=== PATIENT | female | born 1980 | race Caucasian/White ===

== ENCOUNTER 2023-03-10 20:38 | Emergency (ER) | payer BC, SELFPAY ==
[2023-03-10 20:39] VITALS: BP 145/104; PULSE 95; RESP 15; TEMP 36.7; O2SAT 99
--- NOTE | 2023-03-10 21:20 | RAD_ITS ---
STUDY: XR Knee 3 Views 03/10/2023 9:32 PM REASON FOR EXAM: Female, 43 years old. INJURY TECHNIQUE: XR Knee 3 Views LEFT COMPARISON: None FINDINGS: Normal visualized distal femur. Normal visualized proximal tibia and fibula. Normal proximal tibiofibular articulation. Normal medial femorotibial compartment. Normal lateral femorotibial compartment. There is mild lateral patellar tilt of the patellofemoral articulation. The soft tissue structures are unremarkable. RAD/Knee 4 or More Views IMPRESSION: There is mild lateral patellar tilt of the patellofemoral articulation. Electronically Signed: Tan Fam MD at 21:35 EDT ,
--- NOTE | 2023-03-10 23:48 | EDS_ITS ---
HPI History of Present Illness Chief Complaint: Lower Extremity Injury Narrative Narrative: 43-year-old female with/left posterior knee pain. She states she was at an arcade playing and she jumped up and down and felt a pop. She was able to ambulate with the assistance of her daughter. She has an antalgic gait. Denies any direct trauma to the leg. No numbness or tingling. PFSH PFSH Allergy/AdvReac Type Severity Reaction Status Date / Time No Known Allergies Allergy Verified 03/10/23 20:43 Social History Smoking Status: Never smoker ROS ROS ED Constitutional Constitutional ED: Denies chills, fever(s) or sweats Eyes Eyes: Denies blurry vision or change in vision ENT ENT ED: Denies ear pain or sore throat Cardiovascular Cardiovascular: Denies chest pain, palpitations or racing heartbeat Respiratory/Chest Respiratory/Chest: Denies cough, dyspnea or sputum Gastrointestinal Gastrointestinal: Denies abdominal pain, constipation, diarrhea, nausea or vomiting Genitourinary Genitourinary ED: Denies dysuria, hematuria or urinary frequency Musculoskeletal Musculoskeletal: Reports other Details: Left calf pain/posterior knee pain ; Denies myalgias or neck pain Integumentary Denies abscess, Abrasions or rash Neurologic Neurologic: Denies headache(s), paresthesias or weakness Psychiatric Psychiatric: Denies anxiety, depression, suicidal ideation or suicidal thoughts Endocrine Endocrinology: Denies polydipsia or polyuria EXAM Physical Exam Const Vital Signs: 03/10/23 20:39 Temperature 98.0 F Temperature Source Temporal Pulse Rate 95 Respiratory Rate 15 Blood Pressure 145/104 H Blood Pressure Mean 117 Pulse Ox 99 Oxygen Delivery Method Room Air Positive well nourished and well developed General Appearance ED: well developed HEENT normocephalic Resp normal respiratory effort Cardio regular rate and regular rhythm Extremity Extremity Narrative: Tenderness palpation of the left popliteal fossa. There is also tenderness in the proximal calf in the midline. No patellar tenderness. No knee effusion. No ligamentous laxity. No tenderness on the medial or lateral joint line. Neuro oriented x3 and CN's II-XII intact bilaterally Sensorium / Orientation: alert Motor Exam: strength 5/5 throughout Psych mental status grossly normal Skin no wounds MDM MDM MDM Narrative Medical decision making narrative: Patient presenting with left posterior knee pain. She has tenderness behind the left knee. There is no anterior palp pain to palpation on the knee. There is no edema. No bruising. X-rays of left knee on my interpretation show no acute fracture or subluxation. Patient given 600 mg of ibuprofen. She request crutches. I will also place an Dao wrap around her left knee. She was ambulated. Impression: 1. Left calf strain 2. Left knee strain Radiography Diagnostic Testing: Clinical Impression(s) from Imaging Studies Knee X-Ray 03/10/23 21:20 IMPRESSION: There is mild lateral patellar tilt of the patellofemoral articulation. Electronically Signed: Tan Fam MD at 21:35 EDT Reading Location ID and State: [facility] / [place] , Service support , Discharge Plan Triage Chief Complaint: Lower Extremity Injury ED Provider: Luis Martínez Dx/Rx/DC Orders Primary Care Provider: Care Physician,No Primary Referrals: Care Physician,No Primary [Primary Care Provider] -
[2023-03-11] MEDS: Ibuprofen 600 MG Tablet PO (00:02)
== END 2023-03-11 00:11 | disposition home or self-care (01) ==
PROVIDERS: Emergency Provider Student in an Organized Health Care Education/Training Program; Visit Provider Student in an Organized Health Care Education/Training Program
DX: S86.812A Strain of other muscle(s) and tendon(s) at lower leg level, left leg, initial encounter (principal); X58.XXXA Exposure to other specified factors, initial encounter; Y93.89 Activity, other specified; Y92.89 Other specified places as the place of occurrence of the external cause
CPT/HCPCS: 73564; 99284

== ENCOUNTER 2023-07-16 10:22 | Emergency (ER) | payer BC, SELFPAY ==
[2023-07-16 10:23] VITALS: BP 138/98; PULSE 104; RESP 18; TEMP 36.4; O2SAT 100; BMI 37.9
--- NOTE | 2023-07-16 10:44 | RAD_ITS ---
HISTORY: pain. TECHNIQUE: XR Spine Lumbar 2 or 3 Views. COMPARISON: None. FINDINGS: VERTEBRAE: Vertebral body heights preserved. Posterior elements appear intact. ALIGNMENT: No significant anterior or posterior subluxation. Mild levoscoliosis. INTERVERTEBRAL DISCS: Mild degenerative changes with intervertebral disc space narrowing of L4-5 and L5-S1. RAD/Lumbar Spine 2 or 3 Views IMPRESSION: No acute fracture or dislocation identified in the lumbar spine. Mild scoliosis and degenerative disc disease. Electronically Signed: Irene Ibarra MD at 11:11 EDT ,
--- NOTE | 2023-07-16 10:45 | EDS_ITS ---
HPI History of Present Illness Chief Complaint: Back Informant: patient and spouse/S.O. Narrative Narrative: 43-year-old female presenting to the emergency department the chief complaint of atraumatic low back pain. Patient states that a couple days ago she had been working around the house to put something in the oven and went and sat down. When she went and sat down she immediately had pain in the low back. She notes it is nonradiating in nature. It is worse with movement. She denies any change in muscle strength or sensation. No bowel or bladder dysfunction. No fevers. No history of immunosuppression or cancer. Patient denies any weight loss or fevers. No rashes. Patient has not had problems with low back pain in the past. PFSH PFSH Home Medications cyclobenzaprine 10 mg tablet 10 mg PO TID PRN Muscle Spasm #15 TABLETS 07/16/23 [Rx Last Taken Unknown] hydrocodone-acetaminophen 5-325mg 5mg-325mg 1 tab PO Q6H PRN PRN Pain 3 days #12 TABLETS 07/16/23 [Rx Last Taken Unknown] ibuprofen 600 mg tablet 600 mg PO Q6H PRN PRN fever or pain #20 TABLETS 07/16/23 [Rx Last Taken Unknown] Allergy/AdvReac Type Severity Reaction Status Date / Time No Known Allergies Allergy Verified 07/16/23 10:23 Social History Smoking Status: Never smoker ROS ROS ED Constitutional Constitutional ED: Denies chills or weight loss Eyes Eyes: Denies change in vision or diplopia ENT ENT ED: Denies ear pain, rhinorrhea or sore throat Cardiovascular Cardiovascular: Denies chest pain, orthopnea, palpitations or racing heartbeat Respiratory/Chest Respiratory/Chest: Denies cough, dyspnea or orthopnea Gastrointestinal Gastrointestinal: Denies abdominal pain, diarrhea, nausea or vomiting Genitourinary Genitourinary ED: Denies dysuria, hematuria or urinary frequency Musculoskeletal Musculoskeletal: Reports back pain; Denies arthralgias or myalgias Integumentary Denies abscess or rash Neurologic Neurologic: Denies headache(s), paresthesias or weakness Psychiatric Psychiatric: Denies anxiety, depression, suicidal ideation or suicidal thoughts Endocrine Endocrinology: Denies polydipsia, polyphagia or polyuria Allergic/Immunologic Allergic/Immunologic ED: Denies mouth swelling, tongue swelling or urticaria EXAM Physical Exam Const Vital Signs: 07/16/23 10:23 Temperature 97.6 F L Temperature Source Temporal Pulse Rate 104 H Respiratory Rate 18 Blood Pressure 138/98 H Blood Pressure Mean 111 Pulse Ox 100 Oxygen Delivery Method Room Air Positive well nourished and well developed General Appearance ED: well developed HEENT Reports normocephalic, head/scalp atraumatic and moist mucous membranes Eyes PERRL and EOMs intact bilaterally Neck no lymphadenopathy, supple and no JVD Resp normal respiratory effort and clear to auscultation bilaterally Cardio regular rate, regular rhythm and no murmurs GI normal to inspection, nondistended, normoactive bowel sounds and non-tender Palpation: soft Back/Spine no CVA tenderness Back/Spine Narrative: Patient has limited painful range of motion particularly flexion and rotation of the lower back. Patient has very focal tenderness in the SI joint right greater than left. On skin exam there are no rashes or erythema noted. There is no swelling to suggest underlying infection. Lumbar Spine / Lower Back: ROM limited Extremity normal to inspection General Extremety ED: Negative for edema General Extremity: Negative for edema Neuro oriented x3 and CN's II-XII intact bilaterally Sensorium / Orientation: alert Motor Exam: strength 5/5 throughout Deep Tendon Reflexes: Rt Patellar (L4): 2+, Lt Patellar (L4): 2+, Rt Ankle (S1): 2+ and Lt Ankle (S1): 2+ Deep Tendon Reflexes Back: Rt Patellar (L4): 2+, Lt Patellar (L4): 2+, Rt Ankle (S1): 2+ and Lt Ankle (S1): 2+ Psych mental status grossly normal Mood & Affect: Negative for depressed or tearful Skin no rashes or lesions noted and no wounds MDM MDM MDM Narrative Medical decision making narrative: The urinalysis shows no overt infection. There is however some contamination with 5-10 squamous cells. My independent interpretation of the plain films of the pelvis is no acute fracture. My independent interpretation of the plain films of the lumbar spine is no acute fracture. There is some evidence of degenerative disc disease. Patient received a dose of oxycodone. Clinically this is more sacral iliac in nature. There does not appear to be any nerve impingement or neurologic emergency. The patient will use anti-inflammatories and pain medication as well as heat and stretching that was discussed with her. Lab Data Attestation: I reviewed the patient's lab results. Labs: Laboratory Results - last 24 hr 07/16/23 11:50 Urine Color Yellow Urine Clarity Clear Urine pH 5.0 Ur Specific [place] 1.025 Urine Protein 30 H Urine Glucose (UA) Normal Urine Ketones 5 H Urine Occult Blood 10 H Urine Nitrite Negative Urine Bilirubin 1 H Urine Urobilinogen 1 H Ur Leukocyte Esterase 500 H Urine RBC 0 SEEN Urine WBC 5-10 SEEN Ur Squamous Epith Cells 5-10 SEEN Urine Bacteria 1+ Urine Mucus 0 SEEN Urine Test Negative Radiography Diagnostic Testing: Clinical Impression(s) from Imaging Studies Lumbar Spine X-Ray 07/16/23 10:44 IMPRESSION: No acute fracture or dislocation identified in the lumbar spine. Mild scoliosis and degenerative disc disease. Electronically Signed: Irene Ibarra MD at 11:11 EDT , Pelvis X-Ray 07/16/23 10:50 IMPRESSION: No acute displaced fracture or dislocation identified. Electronically Signed: Irene Ibarra MD at 11:12 EDT , Discharge Plan Triage Chief Complaint: Back ED Provider: Sergio Verduzco Dx/Rx/DC Orders Clinical Impression: SI (sacroiliac) joint dysfunction Instructions: Anatomy of the Sacroiliac Joint, ED Sacroiliitis Prescriptions: New cyclobenzaprine [cyclobenzaprine] 10 mg tablet 10 mg PO TID PRN (Reason: Muscle Spasm) Qty: 15 0RF hydrocodone-acetaminophen [hydrocodone-acetaminophen] 5-325 mg tablet 1 tab PO Q6H PRN PRN (Reason: Pain) 3 Days Qty: 12 0RF ibuprofen 600 mg tablet 600 mg PO Q6H PRN PRN (Reason: fever or pain) Qty: 20 0RF Primary Care Provider: Care Physician,No Primary Referrals: Araceli Whitfield MD [Med Staff - Occupational Health And Safety Officer] - 1 Week if not improving Care Physician,No Primary [Primary Care Provider] - Disposition Disposition: Home, Self Care
[2023-07-16] MEDS: oxyCODONE 5 MG Tablet 10 MG PO (10:49)
--- NOTE | 2023-07-16 10:50 | RAD_ITS ---
HISTORY: pain. TECHNIQUE: XR Pelvis 1 or 2 Views. COMPARISON: None. FINDINGS: OSSEOUS STRUCTURES: No acute displaced fracture identified. Note that overlapping bowel shadows may obscure osseous detail. Mineralization unremarkable. JOINT SPACES: No dislocation. Joint spaces maintained. SOFT TISSUES: Essure coils in the pelvis. RAD/Pelvis 1 or 2 Views IMPRESSION: No acute displaced fracture or dislocation identified. Electronically Signed: Irene Ibarra MD at 11:12 EDT ,
[2023-07-16 11:55] LABS: Mucous, Urine 0 SEEN /hpf (<or=2+); Red Blood Cells-Urine 0 SEEN /hpf (0-5)
[2023-07-16 11:59] LABS: Color, Urine Yellow (Yellow); Glucose, Dipstick Normal (Normal); Ketone-Dipstick 5 mg/dl (Negative); Leukocyte Esterase-Dipstick 500 /ul (Negative); Nitrite-Dipstick Negative (Negative); Occult Blood-Urine 10 /ul (Negative); Protein-Dipstick 30 mg/dl (Negative); Specific Gravity, Urine 1.025 (1.002-1.030); Urine Clarity Clear (Clear); Urine Urobilinogen 1 mg/dl (Normal)
[2023-07-16 12:03] LABS: Urine Bilirubin Dipstick 1 mg/dL (Negative)
[2023-07-16 12:08] LABS: Squamous Epithelial Cells - UA 5-10 SEEN /hpf (5-10); White Blood Cells 5-10 SEEN /hpf (0-5)
[2023-07-16 12:09] LABS: Bacteria 1+ /hpf (None Seen); Internal QC Validated? YES +Cl - CLEAR BKGD; Pregnancy, Urine Negative Negative; Record Kit Lot#,Urine Preg 667200
== END 2023-07-16 12:37 | disposition home or self-care (01) ==
PROVIDERS: Emergency Provider Emergency Medicine; Visit Provider Emergency Medicine
DX: M53.3 Sacrococcygeal disorders, not elsewhere classified (principal); X58.XXXA Exposure to other specified factors, initial encounter; Y93.89 Activity, other specified; Y92.019 Unspecified place in single-family (private) house as the place of occurrence of the external cause
CPT/HCPCS: 72100; 72170; 81001; 81025; 99282